=== PATIENT | male | born 1950 | race Caucasian/White ===

== ENCOUNTER 2018-09-10 12:26 | Inpatient (IN) | payer MEDICARE, MEDICAID ==
[~2018-09-10] VITALS: Ht 170.2 cm; Wt 152.0 kg
[2018-09-10] MEDS ORDERED: METO100T14 PO (12:43)
[2018-09-10] MEDS ORDERED: RIVA10TA PO (12:43)
[2018-09-10] MEDS ORDERED: CHOL200078 PO (12:44)
[2018-09-10] MEDS ORDERED: AMIO100T4 PO (12:44)
[2018-09-10] MEDS ORDERED: FURO80TA87 PO (12:44)
[2018-09-10] MEDS ORDERED: NEOMY/BACITRA/POLYMYXIN B OINT UD PACKET TP ONE (12:57)
[2018-09-10] MEDS ORDERED: IV NORMAL SALINE 500 ML BAG IV ONE (13:00)
[2018-09-10 13:14] LABS: BASOPHILS # (AUTO) 0.1 K/uL (0.0-8.0); BASOPHILS % (AUTO) 0.8 % (0.0-2.0); EOSINOPHILS # (AUTO) 0.2 K/uL (0.0-0.7); EOSINOPHILS % (AUTO) 1.8 % (0.0-7.0); HEMATOCRIT 41.7 % (36.7-47.1); HEMOGLOBIN 13.6 g/dL (12.5-16.3); LYMPHOCYTES # (AUTO) 1.9 K/uL (20.0-40.0); LYMPHOCYTES % (AUTO) 21.4 % (20.5-51.5); MEAN CORPUSCULAR HEMOGLOBIN 30.1 uug (23.8-33.4); MEAN CORPUSCULAR HGB CONC 33 g/dL (32.5-36.3); MEAN CORPUSCULAR VOLUME 92.1 fL (73.0-96.2); MONOCYTES % (AUTO) 12.1 % (0.0-11.0); NEUTROPHILS # (AUTO) 5.5 K/uL (1.8-8.9); NEUTROPHILS % (AUTO) 63.9 % (38.5-71.5); PLATELET COUNT (AUTO) 237 K/uL (152-348); RED BLOOD CELL COUNT(AUTO) 4.53 MIL/uL (4.06-5.63); WHITE BLOOD COUNT (AUTO) 8.7 K/uL (3.6-10.2)
[2018-09-10 13:35] LABS: POTASSIUM 3.9 mmol/L (3.5-5.1)
[2018-09-10 13:47] LABS: BILIRUBIN,DIRECT 0.2 mg/dL (0.0-0.2); BILIRUBIN,TOTAL 0.8 mg/dL (0.2-1.0); TOTAL PROTEIN, SERUM 6.6 g/dL (6.4-8.2)
[2018-09-10] MEDS ORDERED: FUROSEMIDE 20 MG/2 ML VIAL IV ONE (14:00)
[2018-09-10] MEDS ORDERED: FUROSEMIDE 40 MG/4 ML VIAL ONE (14:03)
--- NOTE | 2018-09-10 14:27 | NUR ---
pt was evaluated by dr sharp. pt was medicated according to er md orders. pt tolerated to medication without complications. report was given to [facility] telemetry. pt was transfered to room #308.
--- NOTE | 2018-09-10 14:45 | NUR ---
ADMITTED FROM HOME VIA ER A 68 YO MALE WITH ADMITTING DX OF CELLULITIS BOTH UE, AWAKE ALERT AND ORIENTED X3 NO SS OF DISTRESS OR CO ACUTE PAIN. CONTROLLED AFIB ON MONITOR ROUTINE ADMISSION ASSESSMENT INITIATED, MD NOTIFIED OF ADMISSION.
[2018-09-10 15:14] VITALS: BP 127/77
[2018-09-10] MEDS ORDERED: ONDANSETRON 4 MG/2 ML VIAL IV PRN (16:45)
[2018-09-10] MEDS ORDERED: ZOLPIDEM 5 MG TABLET PO PRN (16:45)
--- NOTE | 2018-09-10 18:13 | NUR ---
ADMISSION ORDERS NOTED PATIENT WILL START ON IV ANTIBIOTIC FOR CELLULITIS. REMAINS ON CONTROLLED AFIB DURING THE SHIFT. DENIES CHEST PAIN. CLOSELY MONITORED
[2018-09-10] MEDS ORDERED: VANCOMYCIN IV 2,000 MG in IV DEXTROSE 5% 500 ML IV SCH (19:30)
[2018-09-10] MEDS: HYDROCODONE/APAP 5-325MG TABLET PO PRN (19:34)
--- NOTE | 2018-09-10 19:40 | NUR ---
Received patient awake and alert in bed. Patient is A/Ox4, able to make needs known. No signs of acute distress noted. No complaints of SOB, complains of 7/10 pain on BLE. Will administer PRN pain medication. Heplock on the left FA is intact and patent. Patient is able to ambulate to the restroom with a steady gate. Safety measures initiated. Bed is low and locked, call light is within reach. Will continue to monitor.
[2018-09-10 20:00] VITALS: BP 129/81
[2018-09-10] MEDS ORDERED: PIPERACILLIN/TAZOBACTAM/D5W 50 ML ONE ×2 (20:20→20:23)
[2018-09-10] MEDS ORDERED: VANCOMYCIN 1000 MG VIAL ONE (20:22)
[2018-09-10] MEDS: DOCUSATE SODIUM 100 MG CAPSULE PO SCH (21:00)
[2018-09-10] MEDS ORDERED: diphenhydrAMINE 50 MG/1 ML VIAL IV PRN (21:30)
[2018-09-10] MEDS: PIPERACILLIN/TAZOBACTAM/D5W 2.25 G in PREMIXED 1 EACH IV SCH (23:51)
[2018-09-10] MEDS: ACETAMINOPHEN 325 MG TABLET PO PRN (23:58)
[2018-09-11] VITALS: BP 122/66
[2018-09-11 04:00] VITALS: BP 120/70
[2018-09-11] MEDS: HYDROCODONE/APAP 5-325MG TABLET PO PRN (04:14)
--- NOTE | 2018-09-11 06:01 | NUR ---
Patient slept well throughout night. No signs of acute distress noted. No complaints of SOB. Complained of pain in BLE and PRN pain medication given x2 and was effective. IV antibiotics started and tolerated well. Heplock on the left FA is intact and patent. Safety measures given.
[2018-09-11] MEDS: PIPERACILLIN/TAZOBACTAM/D5W 2.25 G in PREMIXED 1 EACH IV SCH (06:16)
[2018-09-11] MEDS: PANTOPRAZOLE SODIUM 40 MG TABLET.DR PO SCH (06:19)
[2018-09-11 06:40] LABS: BASOPHILS % (AUTO) 0.4 % (0.0-2.0); EOSINOPHILS # (AUTO) 0.2 K/uL (0.0-0.7); EOSINOPHILS % (AUTO) 2.2 % (0.0-7.0); HEMATOCRIT 43.1 % (36.7-47.1); HEMOGLOBIN 14.2 g/dL (12.5-16.3); LYMPHOCYTES # (AUTO) 1.4 K/uL (20.0-40.0); LYMPHOCYTES % (AUTO) 19.3 % (20.5-51.5); MEAN CORPUSCULAR HEMOGLOBIN 30.5 uug (23.8-33.4); MEAN CORPUSCULAR HGB CONC 33 g/dL (32.5-36.3); MEAN CORPUSCULAR VOLUME 92.7 fL (73.0-96.2); MONOCYTES # (AUTO) 0.8 K/uL (2.0-10.0); MONOCYTES % (AUTO) 11.8 % (0.0-11.0); NEUTROPHILS # (AUTO) 4.7 K/uL (1.8-8.9); NEUTROPHILS % (AUTO) 66.3 % (38.5-71.5); PLATELET COUNT (AUTO) 209 K/uL (152-348); RED BLOOD CELL COUNT(AUTO) 4.65 MIL/uL (4.06-5.63)
[2018-09-11 07:11] LABS: BILIRUBIN,TOTAL 1.2 mg/dL (0.2-1.0); CREATININE 1.8 mg/dL (0.6-1.3); PHOSPHOROUS 4.5 mg/dL (2.5-4.9); POTASSIUM 3.8 mmol/L (3.5-5.1); TOTAL PROTEIN, SERUM 6.4 g/dL (6.4-8.2)
[2018-09-11 07:12] LABS: THYROID STIMULATING HORMONE 2.295 mIU/mL (0.358-3.740)
--- NOTE | 2018-09-11 07:30 | NUR ---
RECEIVED PATIENT AWAKE ALERT AND ORIENTED NO C/O PAIN OR DISCOMFORTS AT THIS TIME BLE WITH EDEMA AND SWELLING ELEVATED ON THE PILLOW FOR COMFORT AND TO DECREASE SWELLING CALL LIGHTS AND PERSONAL BELONGINGS ARE WITHIN EASY REACH MADE COMFORTABLE AND WILL CONTINUE TO OBSERVE.
[2018-09-11] MEDS: CHOLECALCIFEROL 1,000 UNIT TABLET PO SCH (08:24)
[2018-09-11] MEDS: AMIODARONE HCL 200 MG TABLET PO SCH (08:25)
--- NOTE | 2018-09-11 08:25 | NUR ---
ERROR IN CHART PULSE RATE WAS 88.
[2018-09-11] MEDS: METOPROLOL TARTRATE 50 MG TABLET PO SCH ×2 (08:26→17:03)
[2018-09-11] MEDS ORDERED: RIVAROXABAN 10 MG TABLET PO SCH (09:00)
[2018-09-11] MEDS ORDERED: VANCOMYCIN IV 2,000 MG in IV DEXTROSE 5% 500 ML IV ONE (09:00)
[2018-09-11 11:05] VITALS: BP 121/61
--- NOTE | 2018-09-11 11:21 | NUR ---
IV SITE IS ;EAKING WITH HIS VANCOMICIN STILL NOT COMPLETED PATIENT STATED WILL ONLY ACCEPT A NEW LINE ON HIS LEFT ARM WHICH IS THE CURRENT ARM THAT IS LEAKING DOES NOT WANT HIS RIGHT ARM USED AND DOES NOT WANT HIS LEFT HAND PATIENT HAS POOR VEINS DR ROBLEDO NOTIFIED WITH ORDER TO INSERT A MIDLINE PATIENT WILL NEED TO CONTINUE ON TWO IV ANTIBIOTICS FOR FEW MORE DAYS CALLED THE NURSING SIZE MIXER DOLLY NOTIFIED HER AND SHE STATED WILL CALL THE MIDLINE NURSE PATIENT AWARE.
[2018-09-11] MEDS: ACETAMINOPHEN 325 MG TABLET PO PRN ×2 (13:14→18:55)
--- NOTE | 2018-09-11 13:17 | NUR ---
STILL AWAITING FOR THE MID LINE NURSE TO INSERT THE MIDLINE IV ATB ON HOLD AT THIS TIME.
[2018-09-11] MEDS: PIPERACILLIN/TAZOBACTAM/D5W 3.375 G in PREMIXED 1 EACH IV SCH ×2 (14:07→22:12)
--- NOTE | 2018-09-11 14:07 | NUR ---
MID LINE INSERTED TO HIS LEFT UPPER ARM AND I CALLED AND SPOKE WITH THE PHARMACIST RE VANCO NOT FINISHED YET BECAUSE OF UNAVAILABILITY OF IV SITE AND SHE STATED TO GO AHEAD AND GIVE THE ZOSYN FIRST THE CONTINUE AND COMPLETE THE VANCOMICIN.
[2018-09-11 15:10] VITALS: BP 114/62
--- NOTE | 2018-09-11 15:24 | NUR ---
Clinical Pharmacy Note: Vancomycin Pharmacy to Dose Subjective: To start vancomycin in this 68 y/o male for indication of leg cellulitis Objective: weight 152kg height 170 cm BMI 52.5 BUN 48 Scr 2.0 wbc 7.0 temp 97.6 2gm x 1 vanco given in Er 09/10 @2045 Random today with am labs: 17.4 Assessment/Plan Due to impaired renal function, will dose per level. Per am level today, dosed another 2gm x 1 vanco dose, first hung at 0900 however IV line was infiltrated. Rest of dose was thus hung after new line in at around 1500. Next random will be tomorrow at 0600. Will check level and re-dose as needed. Will follow
--- NOTE | 2018-09-11 15:30 | NUR ---
MID LINE INFILTERATED IVPB STOPPED MID LINE RN STILL HERE SO DR ROBLEDO NOTIFIED WITH [facility] TO INSERT PICC LINE .
--- NOTE | 2018-09-11 17:11 | NUR ---
DOUBLE LUMEN PICC LINE INSERTED TO HIS RIGHT UPPER ARM FLUSHED PER PROTOCOL AND ANTIBIOTICS CONTINUED.
--- NOTE | 2018-09-11 18:00 | NUR ---
PICC LINE WORKING WELL AT THIS TIME.
[2018-09-11 19:29] VITALS: BP 113/58
--- NOTE | 2018-09-11 19:40 | NUR ---
Received patient awake and alert in bed. No complaints of pain or SOB. No signs of acute distress noted. PICC line on the BALBIR is intact and patent. Patient able to make needs known. Safety measures initiated. Bed is low and locked, call light within reach. Will continue to monitor.
[2018-09-11] MEDS: CULTURELLE CAPSULE PO SCH (20:51)
[2018-09-11] MEDS: DOCUSATE SODIUM 100 MG CAPSULE PO SCH (20:52)
[2018-09-11] MEDS ORDERED: CULTURELLE CAPSULE PO SCH (21:00)
[2018-09-11] MEDS ORDERED: DEXTROSE 50% 50 ML DISP.SYRIN IV PRN (22:00)
[2018-09-11] MEDS: INSULIN REGULAR, HUMAN 300 UNIT/3 ML VIAL SQ PRN (22:23)
[2018-09-11] MEDS: BLOOD SUGAR DIAGNOSTIC 1 EACH STRIP VI SCH (22:25)
[2018-09-12 00:05] VITALS: BP 124/79
[2018-09-12] MEDS: HYDROCODONE/APAP 5-325MG TABLET PO PRN ×2 (05:56→22:51)
[2018-09-12] MEDS: PIPERACILLIN/TAZOBACTAM/D5W 3.375 G in PREMIXED 1 EACH IV SCH ×2 (06:23→13:50)
[2018-09-12] MEDS: PANTOPRAZOLE SODIUM 40 MG TABLET.DR PO SCH (06:23)
[2018-09-12 06:26] LABS: BASOPHILS % (AUTO) 0.4 % (0.0-2.0); EOSINOPHILS # (AUTO) 0.2 K/uL (0.0-0.7); EOSINOPHILS % (AUTO) 1.9 % (0.0-7.0); HEMATOCRIT 43.3 % (36.7-47.1); HEMOGLOBIN 14.3 g/dL (12.5-16.3); LYMPHOCYTES # (AUTO) 1.2 K/uL (20.0-40.0); LYMPHOCYTES % (AUTO) 14.3 % (20.5-51.5); MEAN CORPUSCULAR HEMOGLOBIN 30.6 uug (23.8-33.4); MEAN CORPUSCULAR HGB CONC 33 g/dL (32.5-36.3); MEAN CORPUSCULAR VOLUME 92.3 fL (73.0-96.2); MONOCYTES # (AUTO) 0.9 K/uL (2.0-10.0); MONOCYTES % (AUTO) 11.7 % (0.0-11.0); NEUTROPHILS # (AUTO) 5.8 K/uL (1.8-8.9); NEUTROPHILS % (AUTO) 71.7 % (38.5-71.5); PLATELET COUNT (AUTO) 207 K/uL (152-348); RED BLOOD CELL COUNT(AUTO) 4.69 MIL/uL (4.06-5.63); WHITE BLOOD COUNT (AUTO) 8.1 K/uL (3.6-10.2)
[2018-09-12] MEDS: BLOOD SUGAR DIAGNOSTIC 1 EACH STRIP VI SCH ×4 (06:43→20:48)
--- NOTE | 2018-09-12 06:44 | NUR ---
Patient slept well throughout shift. No signs of acute distress. Complained of pain with PRN pain medication given x1 and is effective. No complaints of SOB. PICC line is intact and patent. All medications given as ordered. Safety measures given.
[2018-09-12 06:47] LABS: CREATININE 1.8 mg/dL (0.6-1.3); MAGNESIUM 2.1 mg/dL (1.8-2.4); PHOSPHOROUS 3.2 mg/dL (2.5-4.9); POTASSIUM 4.6 mmol/L (3.5-5.1); VANCOMYCIN,RANDOM 20.9 ug/mL (18.0-26.0)
[2018-09-12] MEDS: INSULIN REGULAR, HUMAN 300 UNIT/3 ML VIAL SQ PRN ×4 (07:28→20:50)
--- NOTE | 2018-09-12 07:42 | NUR ---
RECEIVED PATIENT AWAKE ALERT AND ORIENTED INSULIN PER SLIDING SCALE GIVEN AT THIS TIME PATIENT IS ON ROOM AIR WITH NO S/S OF SOB.PICC LINE REMAINS INTACT WITH NO S/S OF INFILTERATION ON SITE CONTINUE ON ANTIBIOTICS ORDERED WITH NO ADVERSE OR ALLERGIC REACTIONS AT THIS TIME BLE REDNESS ENCOURAGED TO ELEVATE ON THE PILLOW TO DECREASE SWELLING CALL LIGHTS AND PERSONAL BELONGINGS PLACED WITHIN EASY REACH MADE COMFORTABLE WILL CONTINUE TO OBSERVE AND PROVIDE COMFORT.
[2018-09-12] MEDS: CULTURELLE CAPSULE PO SCH ×2 (08:22→20:48)
[2018-09-12] MEDS: CHOLECALCIFEROL 1,000 UNIT TABLET PO SCH (08:23)
[2018-09-12] MEDS: AMIODARONE HCL 200 MG TABLET PO SCH (08:27)
[2018-09-12] MEDS: METOPROLOL TARTRATE 50 MG TABLET PO SCH ×2 (08:28→17:04)
[2018-09-12] MEDS: RIVAROXABAN 15 MG TABLET PO SCH (08:30)
[2018-09-12 11:42] VITALS: BP 107/65
[2018-09-12] MEDS: ACETAMINOPHEN 325 MG TABLET PO PRN ×2 (12:19→18:29)
--- NOTE | 2018-09-12 12:20 | NUR ---
ALERT ORIENTED REQUESTED FOR TYLENOL FOR GENERALISED PAIN MEDICATED ORDERED REMAIN ON ATB ORDERED WITH NO ADVERSE OR ALLERGIC REACTIONS AT THIS TIME WILL CONTINUE TO OBSERVE.
--- NOTE | 2018-09-12 12:29 | NUR ---
Clinical Pharmacy Note: Vancomycin Pharmacy to Dose Subjective: To continue vancomycin in this 68 y/o male for indication of leg cellulitis Objective: weight 152kg height 170 cm BMI 52.5 BUN 25 Scr 1.8 wbc 8.1 temp 97.5 Random today with am labs: 20.4 Assessment/Plan Due to impaired renal function, will dose per level. Per am level today, dosed another 2gm x 1 vanco dose, today at 1700 (expected vanco level will be around 15 mcg/ml by then). Will check renal function in am & decide when to order next random level for further dosing. Will check level and re-dose as needed. Will follow
--- NOTE | 2018-09-12 13:41 | NUR ---
WOUND CARE CONSULT: PT PRESENTS WITH WOUND TO LEFT CALF AREA, PRESENT ON ADMISSION. PT WAS NOTED TO BE SCRATCHING HIS RT ANKLE AREA. RECOMMEND DPM CONSULT. NOTIFIED DR SWANN OF CONSULT REQUEST. CURRENT PAULA SCORE IS 21. PT REFUSED FULL SKIN ASSESSMENT. WILL SEE PRMohan. IN AGREEMENT WITH PLAN OF CARE.
[2018-09-12 15:20] VITALS: BP 100/64
[2018-09-12] MEDS ORDERED: VANCOMYCIN IV 2,000 MG in IV DEXTROSE 5% 500 ML IV ONE (17:00)
--- NOTE | 2018-09-12 17:51 | NUR ---
PATIENT IS RESTING MEPILEX APPLIED TO HIS LEFT LOWER LEG AFTER CLEANSING WITH NORMAL SALINE MADE COMFORTABLE
[2018-09-12 20:00] VITALS: BP 103/56
--- NOTE | 2018-09-12 20:00 | NUR ---
Received patient laying in bed. No acute distress noted. A/O x 4. Denies pain and SOB. TELE controlled afib 102. In room air. Noted bilateral lower extremities swelling and redness. Noted open wound in the left lower ext. by the calf area. Covered in Mepilex. Safety initiated. Call light within reach. Bed alarm on. Will continue to monitor.
[2018-09-12] MEDS: DOCUSATE SODIUM 100 MG CAPSULE PO SCH (21:00)
[2018-09-12] MEDS: CEFAZOLIN 1 G in PREMIXED 1 EACH IV SCH (21:00)
[2018-09-12] MEDS: ATORVASTATIN 10 MG TABLET PO SCH (21:00)
[2018-09-13] VITALS: BP 126/60
[2018-09-13 04:00] VITALS: BP 123/74
[2018-09-13] MEDS: CEFAZOLIN 1 G in PREMIXED 1 EACH IV SCH ×3 (05:11→21:22)
[2018-09-13] MEDS: PANTOPRAZOLE SODIUM 40 MG TABLET.DR PO SCH (06:04)
--- NOTE | 2018-09-13 06:07 | NUR ---
Patient slept t/o shift. No acute distress noted. C/O pain in the lower ext. Medication given, stated relief. TELE controlled afib at 108. In room air. PICC line in the left upper arm, patent and intact. Vital signs stable. Good urine output. Wound care provided. Safety and comfort measures maintained t/o shift. All meds given as ordered. All needs met.
[2018-09-13] MEDS: BLOOD SUGAR DIAGNOSTIC 1 EACH STRIP VI SCH ×4 (06:31→20:11)
[2018-09-13] MEDS: HYDROCODONE/APAP 5-325MG TABLET PO PRN (06:37)
--- NOTE | 2018-09-13 07:30 | NUR ---
PATIENT RECEIVED AWAKE ALERT AND ORIENTED DENIES PAIN OR DISCOMFORTS AT THIS TIME.ON ROOM AIR WITH NO S/S OF SHORTNESS OF BREATH AMBULATORY TO AND FROM THE BATHROOM WITH SLOW AND STEADY GAIT BLE REMAINS SWOLLEN ENCOURAGED TO ELEVATE BLE CALL LIGHTS AND PERSONAL BELONGINGS PLACED WITHIN EASY REACH MADE COMFORTABLE.
[2018-09-13] MEDS: CHOLECALCIFEROL 1,000 UNIT TABLET PO SCH (08:07)
[2018-09-13] MEDS: METOPROLOL TARTRATE 50 MG TABLET PO SCH ×2 (08:07→17:10)
[2018-09-13] MEDS: AMIODARONE HCL 200 MG TABLET PO SCH (08:07)
[2018-09-13] MEDS: CULTURELLE CAPSULE PO SCH ×2 (08:07→20:06)
[2018-09-13] MEDS: RIVAROXABAN 15 MG TABLET PO SCH (08:09)
[2018-09-13] MEDS ORDERED: LIDOCAINE HCL 1% 20 ML VIAL IJ STA (08:29)
--- NOTE | 2018-09-13 09:30 | NUR ---
DR LANDON DPM HERE AND SEEN PATIENT AND DID A BEDSIDE DEBRIDEMENT OF THE LEFT LEG WOUND AFTER PATIENT SIGNED CONSCENT AND APPLIED DRESSING AND STATED THAT THE DRESSING SHOULD BE CHANGED Q3DAYS WITH ORDERS.PATIENT TOLERATED THE PROCEDURE WELL
[2018-09-13] MEDS: glipiZIDE 5 MG TABLET PO SCH ×2 (09:36→16:36)
[2018-09-13 09:52] LABS: BASOPHILS % (AUTO) 0.6 % (0.0-2.0); EOSINOPHILS # (AUTO) 0.2 K/uL (0.0-0.7); EOSINOPHILS % (AUTO) 2.3 % (0.0-7.0); HEMATOCRIT 41.6 % (36.7-47.1); LYMPHOCYTES # (AUTO) 1.6 K/uL (20.0-40.0); LYMPHOCYTES % (AUTO) 19.4 % (20.5-51.5); MEAN CORPUSCULAR HEMOGLOBIN 30.8 uug (23.8-33.4); MEAN CORPUSCULAR HGB CONC 34 g/dL (32.5-36.3); MEAN CORPUSCULAR VOLUME 91.7 fL (73.0-96.2); MONOCYTES # (AUTO) 1.1 K/uL (2.0-10.0); MONOCYTES % (AUTO) 13.4 % (0.0-11.0); NEUTROPHILS # (AUTO) 5.2 K/uL (1.8-8.9); NEUTROPHILS % (AUTO) 64.3 % (38.5-71.5); PLATELET COUNT (AUTO) 212 K/uL (152-348); RED BLOOD CELL COUNT(AUTO) 4.54 MIL/uL (4.06-5.63); WHITE BLOOD COUNT (AUTO) 8.1 K/uL (3.6-10.2)
[2018-09-13 09:59] LABS: CREATININE 1.8 mg/dL (0.6-1.3); POTASSIUM 4.3 mmol/L (3.5-5.1)
[2018-09-13 11:10] VITALS: BP 111/73
[2018-09-13] MEDS: FUROSEMIDE 80 MG TABLET PO SCH ×2 (11:21→16:36)
[2018-09-13] MEDS: INSULIN REGULAR, HUMAN 300 UNIT/3 ML VIAL SQ PRN ×2 (11:30→20:14)
--- NOTE | 2018-09-13 11:36 | NUR ---
DR KELLY WAS HERE TO SEE PATIENT AND ORDERED CULTUREOF THE LEFT LEG WOUND .DR SWANN HAS JUST CHANGED THE DRESSING ON HIS LEFT LEG AND WANTS DRESSING CHANGED ONLY EVERY [address] KELLY RE UNABLE TO COLLECT SPECIMEN AT THIS TIME MD NOT AVAILABLE MESSAGE LEFT FOR HIM WITH FIDELINA.
[2018-09-13 16:07] VITALS: BP 113/70
--- NOTE | 2018-09-13 16:35 | NUR ---
BLOOD SUGAR IS 91 AT THIS TIME NO ACTION NEEDED WAS UNABLE TO INSERT THIS COMMENT INTO THE ACCUCHECK MACHINE.
--- NOTE | 2018-09-13 17:38 | NUR ---
PATIENT IS RESTING NO RETURN CALL FROM DR KELLY AT THIS TIME WILL ENDORSE
[2018-09-13 19:57] VITALS: BP 116/58
[2018-09-13] MEDS: DOCUSATE SODIUM 100 MG CAPSULE PO SCH (20:12)
[2018-09-13] MEDS: ATORVASTATIN 10 MG TABLET PO SCH (20:12)
[2018-09-13] MEDS: ACETAMINOPHEN 325 MG TABLET PO PRN (21:28)
[2018-09-14 04:00] VITALS: BP 131/77
[2018-09-14] MEDS: CEFAZOLIN 1 G in PREMIXED 1 EACH IV SCH ×3 (06:08→21:02)
[2018-09-14] MEDS: PANTOPRAZOLE SODIUM 40 MG TABLET.DR PO SCH (06:08)
[2018-09-14 06:15] LABS: BASOPHILS % (AUTO) 0.2 % (0.0-2.0); EOSINOPHILS # (AUTO) 0.1 K/uL (0.0-0.7); EOSINOPHILS % (AUTO) 1.8 % (0.0-7.0); HEMATOCRIT 41.7 % (36.7-47.1); LYMPHOCYTES # (AUTO) 1.4 K/uL (20.0-40.0); LYMPHOCYTES % (AUTO) 16.9 % (20.5-51.5); MEAN CORPUSCULAR HEMOGLOBIN 30.9 uug (23.8-33.4); MEAN CORPUSCULAR HGB CONC 34 g/dL (32.5-36.3); MEAN CORPUSCULAR VOLUME 91.9 fL (73.0-96.2); MONOCYTES # (AUTO) 0.9 K/uL (2.0-10.0); MONOCYTES % (AUTO) 11.5 % (0.0-11.0); NEUTROPHILS # (AUTO) 5.7 K/uL (1.8-8.9); NEUTROPHILS % (AUTO) 69.6 % (38.5-71.5); PLATELET COUNT (AUTO) 205 K/uL (152-348); RED BLOOD CELL COUNT(AUTO) 4.54 MIL/uL (4.06-5.63); WHITE BLOOD COUNT (AUTO) 8.2 K/uL (3.6-10.2)
[2018-09-14 06:18] LABS: CREATININE 1.6 mg/dL (0.6-1.3); POTASSIUM 3.9 mmol/L (3.5-5.1)
--- NOTE | 2018-09-14 06:21 | NUR ---
Patient bed scale not working. Recalled previous bed scale value. Addendum: 09/14/18 at 0621 by NATHALIA YOU RN Amended: Links added.
--- NOTE | 2018-09-14 06:28 | NUR ---
Patient AAOx4. PICC double lumen on the BALBIR intact and patent with Ancef currently running. Patient slept throughout entire shift. VSS. No acute distress noted. Dressing on BLE intact. Patient refused ordered lipitor, docusate sodium and glipizide. Patient verbalizes wanting to adjust Lasix administration time. Safety and comfort measures implemented and effective. All needs met. Call light within reach. Will endorse plan of care to incoming nurse accordingly.
[2018-09-14] MEDS: glipiZIDE 5 MG TABLET PO SCH ×2 (06:35→16:25)
[2018-09-14] MEDS: BLOOD SUGAR DIAGNOSTIC 1 EACH STRIP VI SCH ×4 (06:35→20:56)
[2018-09-14] MEDS: CULTURELLE CAPSULE PO SCH ×2 (08:07→20:47)
[2018-09-14] MEDS: FUROSEMIDE 80 MG TABLET PO SCH ×2 (08:07→16:26)
[2018-09-14] MEDS: METOPROLOL TARTRATE 50 MG TABLET PO SCH ×2 (08:07→17:31)
[2018-09-14] MEDS: AMIODARONE HCL 200 MG TABLET PO SCH (08:08)
[2018-09-14] MEDS: CHOLECALCIFEROL 1,000 UNIT TABLET PO SCH (08:08)
[2018-09-14] MEDS: RIVAROXABAN 15 MG TABLET PO SCH (08:08)
[2018-09-14] MEDS: INSULIN REGULAR, HUMAN 300 UNIT/3 ML VIAL SQ PRN ×3 (11:03→21:02)
[2018-09-14 11:17] VITALS: BP 114/50
[2018-09-14 15:11] VITALS: BP 116/57
[2018-09-14 19:19] VITALS: BP 138/66
[2018-09-14] MEDS: DOCUSATE SODIUM 100 MG CAPSULE PO SCH (20:48)
[2018-09-14] MEDS: ATORVASTATIN 10 MG TABLET PO SCH (20:48)
[2018-09-14] MEDS: ACETAMINOPHEN 325 MG TABLET PO PRN (23:02)
[2018-09-15 03:22] VITALS: BP 130/82
[2018-09-15] MEDS: CEFAZOLIN 1 G in PREMIXED 1 EACH IV SCH ×3 (05:44→22:05)
[2018-09-15] MEDS: ACETAMINOPHEN 325 MG TABLET PO PRN ×2 (05:45→23:01)
--- NOTE | 2018-09-15 06:15 | NUR ---
Patient AAOx4. Slept well in between care. PICC line double lumen on BALBIR intact and patent. No acute distress noted. No SOB. PRN Tylenol administered x2 for complaint of BLE pain 10/17. Patient currently resting in bed. No complaints of pain at this time. Safety and comfort measures provided. All needs met. Call light within reach. Wound culture for sensitivity to be collected during dressing change today. Will endorse to incoming shift. Continue plan of care.
[2018-09-15 06:18] LABS: BASOPHILS % (AUTO) 0.3 % (0.0-2.0); EOSINOPHILS # (AUTO) 0.2 K/uL (0.0-0.7); EOSINOPHILS % (AUTO) 2.7 % (0.0-7.0); HEMATOCRIT 43.5 % (36.7-47.1); HEMOGLOBIN 14.6 g/dL (12.5-16.3); LYMPHOCYTES # (AUTO) 1.6 K/uL (20.0-40.0); LYMPHOCYTES % (AUTO) 23.2 % (20.5-51.5); MEAN CORPUSCULAR HEMOGLOBIN 30.7 uug (23.8-33.4); MEAN CORPUSCULAR HGB CONC 34 g/dL (32.5-36.3); MEAN CORPUSCULAR VOLUME 91.3 fL (73.0-96.2); MONOCYTES # (AUTO) 0.9 K/uL (2.0-10.0); NEUTROPHILS # (AUTO) 4.2 K/uL (1.8-8.9); NEUTROPHILS % (AUTO) 60.8 % (38.5-71.5); PLATELET COUNT (AUTO) 198 K/uL (152-348); RED BLOOD CELL COUNT(AUTO) 4.77 MIL/uL (4.06-5.63); WHITE BLOOD COUNT (AUTO) 6.9 K/uL (3.6-10.2)
[2018-09-15 06:37] LABS: CREATININE 1.7 mg/dL (0.6-1.3); POTASSIUM 3.7 mmol/L (3.5-5.1)
[2018-09-15] MEDS: glipiZIDE 5 MG TABLET PO SCH ×2 (06:38→17:14)
[2018-09-15] MEDS: PANTOPRAZOLE SODIUM 40 MG TABLET.DR PO SCH (06:38)
[2018-09-15] MEDS: BLOOD SUGAR DIAGNOSTIC 1 EACH STRIP VI SCH ×4 (06:39→21:29)
[2018-09-15] MEDS: FUROSEMIDE 80 MG TABLET PO SCH ×2 (08:19→17:00)
[2018-09-15] MEDS: METOPROLOL TARTRATE 50 MG TABLET PO SCH ×2 (08:19→17:14)
[2018-09-15] MEDS: CHOLECALCIFEROL 1,000 UNIT TABLET PO SCH (08:19)
[2018-09-15] MEDS: CULTURELLE CAPSULE PO SCH ×2 (08:20→21:24)
[2018-09-15] MEDS: AMIODARONE HCL 200 MG TABLET PO SCH (08:20)
[2018-09-15] MEDS: RIVAROXABAN 15 MG TABLET PO SCH (08:21)
[2018-09-15 11:03] VITALS: BP 122/60
[2018-09-15] MEDS: INSULIN REGULAR, HUMAN 300 UNIT/3 ML VIAL SQ PRN ×2 (12:36→22:08)
[2018-09-15 16:00] VITALS: BP 115/59
--- NOTE | 2018-09-15 18:06 | NUR ---
PATIENT A/0X4, DENIED PAIN THROUGHOUT SHIFT. PICC IN RUST REMAINS INTACT AND PATENT. BLE WOUND DRESSINGS CHANGED PER ORDERS, WOUND CULTURE FOR LLE SENT TO LAB. NO FALLS OR INJURIES THROUGHOUT SHIFT, VSS, CALL LIGHT IN REACH.
--- NOTE | 2018-09-15 19:09 | NUR ---
Received report from the day shift. Received patient awake, alert and oriented x 4, ambulatory. PICC access is patent and intact, flushes well. Bed is in low position, locked, side rails up x 2, call light within reach. Comfort and safety provided . No acute distress noted.
[2018-09-15 20:00] VITALS: BP 106/55
[2018-09-15] MEDS: ATORVASTATIN 10 MG TABLET PO SCH (20:50)
[2018-09-15] MEDS: DOCUSATE SODIUM 100 MG CAPSULE PO SCH (20:50)
[2018-09-16] MEDS: CEFAZOLIN 1 G in PREMIXED 1 EACH IV SCH ×2 (05:20→14:11)
[2018-09-16 05:22] VITALS: BP 100/58
[2018-09-16 06:33] LABS: BASOPHILS % (AUTO) 0.4 % (0.0-2.0); EOSINOPHILS # (AUTO) 0.2 K/uL (0.0-0.7); EOSINOPHILS % (AUTO) 1.6 % (0.0-7.0); HEMATOCRIT 46.9 % (36.7-47.1); HEMOGLOBIN 15.5 g/dL (12.5-16.3); LYMPHOCYTES % (AUTO) 17.8 % (20.5-51.5); MEAN CORPUSCULAR HEMOGLOBIN 30.4 uug (23.8-33.4); MEAN CORPUSCULAR HGB CONC 33 g/dL (32.5-36.3); MEAN CORPUSCULAR VOLUME 91.8 fL (73.0-96.2); MONOCYTES # (AUTO) 0.9 K/uL (2.0-10.0); MONOCYTES % (AUTO) 8.5 % (0.0-11.0); NEUTROPHILS # (AUTO) 7.9 K/uL (1.8-8.9); NEUTROPHILS % (AUTO) 71.7 % (38.5-71.5); PLATELET COUNT (AUTO) 241 K/uL (152-348); WHITE BLOOD COUNT (AUTO) 11.1 K/uL (3.6-10.2)
[2018-09-16 06:38] LABS: CREATININE 1.8 mg/dL (0.6-1.3)
[2018-09-16] MEDS: BLOOD SUGAR DIAGNOSTIC 1 EACH STRIP VI SCH ×3 (06:44→16:40)
[2018-09-16] MEDS: PANTOPRAZOLE SODIUM 40 MG TABLET.DR PO SCH (06:44)
[2018-09-16] MEDS: glipiZIDE 5 MG TABLET PO SCH ×2 (06:44→16:43)
--- NOTE | 2018-09-16 07:20 | NUR ---
patient is awake, alert and oriented x 4, ambulatory. According to chainer nurse Harley patient developed a watery diarrhea at 0600. had another liquid BM at 0720. PICC access is patent and intact, flushes well. Bed is in low position, locked, side rails up x 2, call light within reach. Comfort and safety provided . No acute distress noted.Will continue plan of care
--- NOTE | 2018-09-16 07:30 | NUR ---
patient is awake, alert and oriented x 4, ambulatory. patient developed a watery diarrhea at 0600. had another liquid BM at 0720. PICC access is patent and intact, flushes well. Bed is in low position, locked, side rails up x 2, call light within reach. Comfort and safety provided . No acute distress noted. Endorsed report to the andreas Berry RN
[2018-09-16] MEDS: CULTURELLE CAPSULE PO SCH (08:16)
[2018-09-16] MEDS: AMIODARONE HCL 200 MG TABLET PO SCH (08:17)
[2018-09-16] MEDS: METOPROLOL TARTRATE 50 MG TABLET PO SCH (08:17)
[2018-09-16] MEDS: FUROSEMIDE 80 MG TABLET PO SCH ×2 (08:17→17:00)
[2018-09-16] MEDS: CHOLECALCIFEROL 1,000 UNIT TABLET PO SCH (08:17)
[2018-09-16] MEDS: RIVAROXABAN 15 MG TABLET PO SCH (08:21)
[2018-09-16] MEDS ORDERED: ATOR10TA PO (11:07)
[2018-09-16] MEDS ORDERED: CEPH-570 PO (11:07)
[2018-09-16] MEDS ORDERED: GLIP5TAB13 PO (11:07)
[2018-09-16 11:11] VITALS: BP 120/60
[2018-09-16] MEDS ORDERED: VANC500V PO (11:55)
[2018-09-16] MEDS ORDERED: VANCOMYCIN FOR PO/GT/NG USE PO SCH (12:00)
[2018-09-16] MEDS: INSULIN REGULAR, HUMAN 300 UNIT/3 ML VIAL SQ PRN (12:03)
[2018-09-16 16:10] VITALS: BP 125/74
--- NOTE | 2018-09-16 17:52 | NUR ---
PATIENT IS D/C TO SELF, HOMELESS,HE STATED HE HAS A VAN IN THE HOSPITAL PARKING LOT, HE IS MEDICALLY STABLE AND MEDICALLY CLEARED BY MD, D/C EDUCATION WAS GIVEN, ID BAND, PICC LINE WAS REMOVED, BELONGINGS FORM IS COMPLETED AND SIGNED, D/C PAPERWORK IS SIGNED,QUESTIONS AND CONCERNS ARE ADDRESSED
== END 2018-09-16 18:10 | disposition home or self-care (01) | DRG 570 ==
LOC: ER 12:26 → TELE3 14:22 → MEDSURG3 09-13 18:03
PROVIDERS: ADMIT Internal Medicine; ATTEND Internal Medicine
PROC: 05HY33Z Insertion of Infusion Device into Upper Vein, Percutaneous Approach (ICD-10-PCS; principal; 2018-09-11)
PROC: 02HV33Z Insertion of Infusion Device into Superior Vena Cava, Percutaneous Approach (ICD-10-PCS; 2018-09-11)
PROC: 0JBP0ZZ Excision of Left Lower Leg Subcutaneous Tissue and Fascia, Open Approach (ICD-10-PCS; 2018-09-13)
DX: L03.116 Cellulitis of left lower limb (principal); I50.23 Acute on chronic systolic (congestive) heart failure; N17.0 Acute kidney failure with tubular necrosis; L97.821 Non-pressure chronic ulcer of other part of left lower leg limited to breakdown of skin; I13.0 Hypertensive heart and chronic kidney disease with heart failure and stage 1 through stage 4 chronic kidney disease, or unspecified chronic kidney disease; L97.228 Non-pressure chronic ulcer of left calf with other specified severity; Z68.43 Body mass index [BMI] 50.0-59.9, adult; I87.2 Venous insufficiency (chronic) (peripheral); N18.9 Chronic kidney disease, unspecified; Z59.0 Homelessness; E66.01 Morbid (severe) obesity due to excess calories; Z79.01 Long term (current) use of anticoagulants; Z87.891 Personal history of nicotine dependence; I48.2 Chronic atrial fibrillation; I35.8 Other nonrheumatic aortic valve disorders; E78.5 Hyperlipidemia, unspecified; E11.65 Type 2 diabetes mellitus with hyperglycemia; E11.22 Type 2 diabetes mellitus with diabetic chronic kidney disease; B35.1 Tinea unguium
CPT/HCPCS: 36415; 70030-TC; 71045; 83735; 84100; 84443; 85025; 85730; 87040; 87070; 93005; 93307; A4663; C1751; G0378; J0690; J1200; J1815; J1940; J2543; J3370; J3490; J7030; J7050; J7060